=== PATIENT | male | born 1945 | race Caucasian/White ===

== ENCOUNTER 2018-05-14 11:50 | Inpatient (IN) | payer OTHER ==
[~2018-05-14] VITALS: Ht 172.7 cm; Wt 93.0 kg
[2018-05-14 12:02] VITALS: Ht 172.7 cm; Wt 93.0 kg
[2018-05-14 13:03] LABS: RED CELL DISTRIBUTION WIDTH 16.1 % (11.5-14.5)
[2018-05-14 13:04] LABS: PLATELET COUNT 470 x10^3mcL (130-400)
[2018-05-14 13:08] LABS: CALCIUM 8.1 mg/dL (8.5-10.1); CARBON DIOXIDE 26.3 mmol/L (21-32); CHLORIDE SERUM 101 mmol/L (98-107); CREATININE SERUM 2.1 mg/dL (0.7-1.3); GLUCOSE SERUM 300 mg/dL (74-106); POTASSIUM SERUM 3.5 mmol/L (3.5-5.1); SODIUM SERUM 136 mmol/L (136-145)
[2018-05-14 13:12] LABS: ALKALINE PHOSPHATASE 125 U/L (46-116); ALT/SGPT 17 U/L (16-63); AST/SGOT 26 U/L (15-37); BILIRUBIN TOTAL 0.3 mg/dL (0.20-1.00); LIPASE 141 IU/L (73-393); TOTAL PROTEIN, SERUM 7.4 g/dL (6.4-8.2)
[2018-05-14 13:13] LABS: ALBUMIN 1.7 g/dL (3.4-5.0)
[2018-05-14 13:35] LABS: ATYPICAL LYMPH 2 %; BAND NEUTROPHIL 0 % (0-10); BASOPHIL 0 % (0-2); MONOCYTE 2 % (0-7); SEGMENTED NEUTROPHILS 95 % (37-75); rbc morphology (normal/abnorm) ABNORMAL (NORMAL)
[2018-05-14 13:36] LABS: PLATELET MORPHOLOGY PLATELETS INCREASED
[2018-05-14 16:20] LABS: CHOLESTEROL/HDL RATIO 3.8
[2018-05-14] MEDS ORDERED: GOOD NEIGH1200 MG/15 PO (16:48)
[2018-05-14] MEDS ORDERED: ACETAMINOPHEN325 M3 PO (16:49)
[2018-05-14] MEDS ORDERED: APIDRA100 U/M1 IJ (16:50)
[2018-05-14] MEDS ORDERED: ASPIRIN ADULT L81 M5 PO (16:50)
[2018-05-14] MEDS ORDERED: LIPI10 PO ×2 (16:50→16:52)
[2018-05-14] MEDS ORDERED: DULCOLAX10 M1 RC (16:50)
[2018-05-14] MEDS ORDERED: NEPHRO-VITE VITA1 EA PO (16:51)
[2018-05-14] MEDS ORDERED: PANTOPRAZOLE SO40 M1 PO (16:51)
[2018-05-14] MEDS ORDERED: ACIDOPHILUS LA1 EAC1 PO (16:51)
[2018-05-14] MEDS ORDERED: LANTUS SOLOS100 U/M1 SC (16:51)
[2018-05-14] MEDS ORDERED: FLEET ENEMA135 ML RC (16:52)
[2018-05-14 17:00] LABS: MAGNESIUM 1.7 mg/dL (1.8-2.4); PHOSPHOROUS 3.9 mg/dL (2.5-4.9)
[2018-05-14 17:07] LABS: T3 TOTAL 0.67 ng/mL
[2018-05-14 17:10] LABS: FREE T4 1.08 ng/dL (0.76-1.46); FREE THYROXINE INDEX 2.3 ug/dL (1.4-4.5); T4(THYROXINE) 5.5 ug/dL (4.7-13.3)
[2018-05-14 17:48] LABS: RED BLOOD CELLS 2.89 M/mm3 (4.52-5.90)
[2018-05-14 17:53] VITALS: BP 116/62
[2018-05-14 18:03] LABS: IRON 11 ug/dL (65-170); TOTAL IRON BINDING CAPACITY 224 ug/dL (250-450)
[2018-05-14 21:42] VITALS: BP 116/62
[2018-05-15 05:37] LABS: BASOPHIL % 0.1 % (0-2)
[2018-05-15 05:39] LABS: PLATELET COUNT 467 x10^3mcL (130-400); RED CELL DISTRIBUTION WIDTH 16.3 % (11.5-14.5)
[2018-05-15 05:47] LABS: CARBON DIOXIDE 26.2 mmol/L (21-32); CHLORIDE SERUM 106 mmol/L (98-107); CREATININE SERUM 1.8 mg/dL (0.7-1.3); GLUCOSE SERUM 147 mg/dL (74-106); MAGNESIUM 1.7 mg/dL (1.8-2.4); PHOSPHOROUS 3.6 mg/dL (2.5-4.9); POTASSIUM SERUM 3.1 mmol/L (3.5-5.1); SODIUM SERUM 141 mmol/L (136-145)
[2018-05-15 05:52] LABS: IRON 9 ug/dL (65-170); TOTAL IRON BINDING CAPACITY 200 ug/dL (250-450)
[2018-05-15 08:49] LABS: UA SPECIFIC GRAVITY 1.015 (1.005-1.035); microscopic required? YES; urine erythrocyte 3+ (NEGATIVE)
[2018-05-15 12:17] VITALS: BP 100/38
[2018-05-15 17:10] VITALS: BP 112/39
[2018-05-15 21:59] VITALS: BP 101/34
[2018-05-16 06:16] VITALS: BP 113/42
[2018-05-16 07:51] LABS: CALCIUM 7.8 mg/dL (8.5-10.1); CARBON DIOXIDE 22.2 mmol/L (21-32); CHLORIDE SERUM 108 mmol/L (98-107); CREATININE SERUM 1.5 mg/dL (0.7-1.3); GLUCOSE SERUM 181 mg/dL (74-106); MAGNESIUM 2.1 mg/dL (1.8-2.4); PHOSPHOROUS 3.2 mg/dL (2.5-4.9); POTASSIUM SERUM 3.1 mmol/L (3.5-5.1); SODIUM SERUM 140 mmol/L (136-145)
[2018-05-16 08:29] LABS: PLATELET COUNT 426 x10^3mcL (130-400); RED CELL DISTRIBUTION WIDTH 15.9 % (11.5-14.5)
[2018-05-16 11:34] LABS: ATYPICAL LYMPH 1 %; BAND NEUTROPHIL 0 % (0-10); BASOPHIL 0 % (0-2); MONOCYTE 5 % (0-7); SEGMENTED NEUTROPHILS 72 % (37-75)
[2018-05-16 11:35] LABS: PLATELET MORPHOLOGY PLATELETS INCREASED; rbc morphology (normal/abnorm) ABNORMAL (NORMAL)
[2018-05-16 13:05] VITALS: BP 110/56
[2018-05-16 13:56] VITALS: BP 133/48
[2018-05-16 17:11] VITALS: BP 122/56
[2018-05-16 21:37] VITALS: BP 141/54
[2018-05-17 06:23] VITALS: BP 149/63
[2018-05-17 06:29] LABS: BASOPHIL % 0.6 % (0-2)
[2018-05-17 06:47] LABS: CALCIUM 8.3 mg/dL (8.5-10.1); CARBON DIOXIDE 21.5 mmol/L (21-32); CHLORIDE SERUM 110 mmol/L (98-107); CREATININE SERUM 1.3 mg/dL (0.7-1.3); GLUCOSE SERUM 134 mg/dL (74-106); MAGNESIUM 1.8 mg/dL (1.8-2.4); POTASSIUM SERUM 3.2 mmol/L (3.5-5.1); SODIUM SERUM 141 mmol/L (136-145)
[2018-05-17 06:51] LABS: PLATELET COUNT 496 x10^3mcL (130-400); RED CELL DISTRIBUTION WIDTH 16.2 % (11.5-14.5)
[2018-05-17 07:47] VITALS: BP 127/71; BP 98/48
[2018-05-17 11:28] VITALS: BP 148/61
[2018-05-17 18:05] VITALS: BP 157/66
[2018-05-17 21:22] VITALS: BP 187/71
[2018-05-17 22:42] VITALS: BP 142/58
[2018-05-18 06:01] VITALS: BP 151/74
[2018-05-18 09:01] VITALS: BP 133/73
[2018-05-18 13:15] VITALS: BP 136/60
[2018-05-18 14:27] VITALS: BP 133/73
[2018-05-18 17:11] VITALS: BP 122/56
[2018-05-18 21:37] VITALS: BP 153/53
[2018-05-19 06:21] VITALS: BP 149/83
[2018-05-19 08:41] LABS: CALCIUM 8.4 mg/dL (8.5-10.1); CARBON DIOXIDE 23.6 mmol/L (21-32); CHLORIDE SERUM 107 mmol/L (98-107); CREATININE SERUM 1.1 mg/dL (0.7-1.3); GLUCOSE SERUM 140 mg/dL (74-106); POTASSIUM SERUM 3.2 mmol/L (3.5-5.1); SODIUM SERUM 141 mmol/L (136-145)
[2018-05-19 08:42] LABS: BASOPHIL % 0.6 % (0-2)
[2018-05-19 08:43] LABS: PLATELET COUNT 598 x10^3mcL (130-400); RED CELL DISTRIBUTION WIDTH 16.5 % (11.5-14.5)
[2018-05-19 09:58] VITALS: BP 147/70
[2018-05-19 13:05] VITALS: BP 118/56
[2018-05-19 16:27] VITALS: BP 141/63
[2018-05-19 21:19] VITALS: BP 116/64
[2018-05-20 05:21] VITALS: BP 128/62
[2018-05-20 07:01] LABS: CARBON DIOXIDE 24.1 mmol/L (21-32); CHLORIDE SERUM 108 mmol/L (98-107); CREATININE SERUM 1.1 mg/dL (0.7-1.3); GLUCOSE SERUM 124 mg/dL (74-106); SODIUM SERUM 140 mmol/L (136-145)
[2018-05-20 08:30] VITALS: BP 137/60
[2018-05-20 09:35] LABS: BASOPHIL % 1.1 % (0-2)
[2018-05-20 09:36] LABS: PLATELET COUNT 635 x10^3mcL (130-400); RED CELL DISTRIBUTION WIDTH 16.9 % (11.5-14.5)
[2018-05-20] MEDS ORDERED: VANCO 750750 MG/150 IV (11:01)
[2018-05-20 13:11] VITALS: BP 137/60
== END 2018-05-20 14:24 | DRG 871 ==
LOC: ED 11:50 → IC 15:38 → DU 15:38 → IC 17:22 → DU 05-15 12:13
PROVIDERS: Emergency Medicine; Internal Medicine; Internal Medicine Nephrology; ADMIT Family Medicine
PROC: 05PYX3Z Removal of Infusion Device from Upper Vein, External Approach (ICD-10-PCS; principal; 2018-05-16)
DX: A41.02 Sepsis due to Methicillin resistant Staphylococcus aureus (principal); N18.6 End stage renal disease; N17.0 Acute kidney failure with tubular necrosis; E43 Unspecified severe protein-calorie malnutrition; T82.7XXA Infection and inflammatory reaction due to other cardiac and vascular devices, implants and grafts, initial encounter; I12.0 Hypertensive chronic kidney disease with stage 5 chronic kidney disease or end stage renal disease; N39.0 Urinary tract infection, site not specified; R65.20 Severe sepsis without septic shock; E11.22 Type 2 diabetes mellitus with diabetic chronic kidney disease; E11.65 Type 2 diabetes mellitus with hyperglycemia; R33.9 Retention of urine, unspecified; E83.51 Hypocalcemia; D63.1 Anemia in chronic kidney disease; F03.90 Unspecified dementia, unspecified severity, without behavioral disturbance, psychotic disturbance, mood disturbance, and anxiety; Z99.2 Dependence on renal dialysis; Z79.4 Long term (current) use of insulin; Z68.31 Body mass index [BMI] 31.0-31.9, adult; Y84.1 Kidney dialysis as the cause of abnormal reaction of the patient, or of later complication, without mention of misadventure at the time of the procedure; Y92.122 Bedroom in nursing home as the place of occurrence of the external cause
CPT/HCPCS: 82962; 83880; 84439; 87804; 94150; 97110-GP; 97116-GP; 97530-GP; J0878; J1580; J1815; J2001; J3370; J3475; J3480; J3490; J7030; J7050; J7620; Q0092